=== PATIENT | male | born 1990 | race Caucasian/White ===

== ENCOUNTER → 2016-07-27 | Outpatient (CLI) | payer OTHER ==
--- NOTE | 2016-07-27 13:51 | XR ---
EXAMINATION TYPE: XR knee complete RT DATE OF EXAM: 07/27/2016 1:47 PM COMPARISON: NONE HISTORY: Pain FINDINGS: Joint spaces are preserved. Osseous structures are intact. No acute fracture seen. IMPRESSION: 1. No acute fracture or dislocation. Consider MRI follow-up.
== END | disposition home or self-care (01) ==
LOC: RADXRMAIN 13:34
PROVIDERS: ATTEND Physician Assistant
DX: M25.561 Pain in right knee (principal)

== ENCOUNTER 2019-08-30 13:13 | Emergency (ER) | payer BC, OTHER ==
[2019-08-30 13:19] VITALS: TEMP 98.1
[2019-08-30 14:01] VITALS: RESP 18
[2019-08-30 14:13] LABS: Basophils % (A) 1 %; Eosinophils # (A) 0.1 k/uL (0-0.7); Eosinophils % (A) 1 %; HCT 49.8 % (39.0-53.0); HGB 17.2 gm/dL (13.0-17.5); Lymphocytes % (A) 14 %; MCH 31.5 pg (25.0-35.0); MCHC 34.5 g/dL (31.0-37.0); MCV 91.2 fL (80.0-100.0); Mean Platelet Volume 7.5; Monocytes # (A) 0.5 k/uL (0-1.0); Monocytes % (A) 8 %; Neutrophils % (A) 74 %; Platelet Count 132 k/uL (150-450); RBC 5.46 m/uL (4.30-5.90); RDW 12.9 % (11.5-15.5); WBC 6.8 k/uL (3.8-10.6)
[2019-08-30 14:18] LABS: Appearance,Urine Clear (Clear); Bilirubin,Urine Negative (Negative); Blood,Urine Negative (Negative); Color,Urine Yellow; Glucose,Urine (UA) Negative (Negative); Ketones,Urine Negative (Negative); Leukocyte Esterase,Urine Negative (Negative); Nitrite,Urine Negative (Negative); Protein,Urine Trace (Negative); Specific Gravity,Urine 1.031 (1.001-1.035)
[2019-08-30 14:22] LABS: Chloride 102 mmol/L (98-107)
[2019-08-30 14:23] LABS: ALT 24 U/L (4-49); AST 34 U/L (17-59); African American GFR (CKD) >90 (>60 ml/min/1.73 sqM); Albumin 4.3 g/dL (3.5-5.0); Alkaline Phosphatase 66 U/L (38-126); Amylase 43 U/L (30-110); Anion Gap 7 mmol/L; Blood Urea Nitrogen 16 mg/dL (9-20); Carbon Dioxide 26 mmol/L (22-30); Glucose 92 mg/dL (74-99); Non-African American GFR(CKD) >90 (>60 ml/min/1.73 sqM); Sodium 135 mmol/L (137-145); Total Bilirubin 2.4 mg/dL (0.2-1.3)
[2019-08-30 14:29] LABS: Potassium 4.2 mmol/L (3.5-5.1)
--- NOTE | 2019-08-30 14:43 | XR ---
EXAMINATION TYPE: XR KUB DATE OF EXAM: 08/30/2019 COMPARISON: NONE HISTORY: Pain TECHNIQUE: One view abdominal series FINDINGS: The osseous structures are intact. The bowel gas pattern is nonspecific. Lung bases are clear. Ther e are air-fluid levels noted. Calcification along the lateral margin of the left acetabulum can be as sociated with an acetabular labral tear. Nonspherical morphology of the femoral head can be associate d with bilateral femoral acetabular impingement. IMPRESSION: 1. Nonspecific abdomen. Numerous air-fluid levels can be seen with an ileus, enteritis or partial ob struction correlate clinically.
--- NOTE | 2019-08-30 15:29 | CT ---
EXAMINATION TYPE: CT abdomen pelvis w con DATE OF EXAM: 08/30/2019 COMPARISON: Abdominal x-ray earlier today HISTORY: Upper Abdominal pain with nausea. CT DLP: 620.7 mGycm, Automated Exposure Control for Dose Reduction was Utilized. CONTRAST: CT scan of the abdomen and pelvis is performed without oral but with IV Contrast, patient injected wi th 100 mL of Isovue 300. FINDINGS: LUNG BASES: No significant abnormality is appreciated. LIVER/GB: Right hepatic dome shows 1.4 cm hyperdense round enhancing focus that becomes isodense on d elayed phase images seen best on axial image 15 series 201. Subcentimeter hypodense lesion left hepat ic lobe image 21 too small to further characterize presumed benign. PANCREAS: No significant abnormality is seen. SPLEEN: Mild splenomegaly 14.0 cm long axis coronal image 38. ADRENALS: No significant abnormality is seen. KIDNEYS: No significant abnormality is seen. BOWEL: Suboptimal evaluation of bowel without enteric contrast and patient having little intra-abdomi nal fat. Stomach is felt within normal limits. There is no suspicious small or large bowel dilatation . Some fluid extends into the low lying cecum in the right pelvis. Mild to moderate wall thickening o f some small bowel loops in the left abdomen is felt present. PROSTATE/SEMINAL VESICLES: No gross abnormality seen. LYMPH NODES: No greater than 1cm abdominal or pelvic lymph nodes are appreciated. OSSEOUS STRUCTURES: No significant abnormality is seen. OTHER: No significant additional abnormality is seen. IMPRESSION: 1. Overall nonobstructive bowel gas pattern CT. Perhaps mild underlying uncomplicated enterocolitis, correlate clinically. 2. There is 1.4 cm hyperdense right hepatic dome liver lesion, differential includes adenoma versus F NH. Nonemergent multiphase liver protocol contrast-enhanced MRI follow-up is advised. 3. Mild splenomegaly noted which may warrant further clinical workup.
[2019-08-30] MEDS ORDERED: MORPHINE SULFATE 4 MG/ML SYRINGE IVP STA (15:55)
--- NOTE | 2019-08-30 16:29 | ED ---
Abdominal Pain HPI - General Chief Complaint: Abdominal Pain Stated Complaint: abdominal pain-sent from dr Time Seen by Provider: 08/30/19 14:29 Source: patient Mode of arrival: ambulatory Limitations: no limitations - History of Present Illness Initial Comments: 29-year-old male presenting for upper abdominal painx 4-5 days. Patient states that she has had upper abdominal pain since Wednesday. He states he had vomiting at that time and thought he was coming down with an infection. Patient denies diarrhea. He states he has not had a significant bowel movement 3 days patient is passing gas. Patient states he went to an urgent care where he had a plain film there is concern for possible obstruction U sent to the emergency department for further evaluation. Patient denies any vomiting since Wednesday. She states that he has had some belching. Patient denies any chest pain shortness of breath patient denies radiation of pain to the back denies any chronic NSAID or alcohol abuse, no history of PUD. Lites melena denies hematochezia. Patient denies any hematemesis, or fevers. patient has no other complaints upon arrival patient appears well besides acute distress. Patient states recently the pain has been getting better - Related Data Home Medications Medication Instructions Recorded Confirmed No Known Home Medications 11/15/14 11/15/14 Allergies Allergy/AdvReac Type Severity Reaction Status Date / Time No Known Allergies Allergy Verified 08/30/19 13:19 Review of Systems ROS Statement: Those systems with pertinent positive or pertinent negative responses have been documented in the HPI. ROS Other: All systems not noted in ROS Statement are negative. Past Medical History Past Medical History: No Reported History History of Any Multi-Drug Resistant Organisms: None Reported Past Surgical History: No Surgical Hx Reported Past Psychological History: No Psychological Hx Reported Smoking Status: Former smoker Past Alcohol Use History: None Reported Past Drug Use History: Marijuana General Exam - General Exam Comments Initial Comments: General: The patient is awake and alert, in no distress, and does not appear acutely ill. Eye: +3 mm pupils are equal, round and reactive to light, extra-ocular mov ements are intact. No nystagmus. There is normal conjunctiva bilaterally. No signs of icterus. Cardiovascular: There is a regular rate and rhythm. No murmur, rub or gallop is appreciated. Respiratory: Lungs are clear to auscultation, respirations are non-labored, breath sounds are equal. No wheezes, stridor, rales, or rhonchi. Gastrointestinal: Soft, non-distended, mild epigastric pain to deep palpation remaining abdomen nontender and is without masses or organomegaly noted. There is no rebound or guarding present. Bowel sounds are unremarkable Musculoskeletal: Normal ROM, no tenderness. Strength 5/5. Sensation intact. Pulses equal bilaterally 2+. Neurological: A&O x 3. CN II-XII intact, There are no obvious motor or sensory deficits. Coordination appears grossly intact. Speech is normal. Skin: Skin is warm and dry and no rashes or lesions are noted. Psychiatric: Cooperative, appropriate mood & affect, normal judgment. Limitations: no limitations Course Vital Signs 08/30/19 08/30/19 08/30/19 13:15 14:00 16:04 Temperature 98.1 F Pulse Rate 74 80 75 Respiratory 16 18 18 Rate Blood Pressure 123/76 131/74 120/81 O2 Sat by Pulse 98 95 97 Oximetry 08/30/19 16:34 Temperature 98.1 F Pulse Rate 85 Respiratory 18 Rate Blood Pressure 121/74 O2 Sat by Pulse 97 Oximetry Medical Decision Making - Medical Decision Making 29-year-old male presenting for abdominal pain history of vomiting on Wednesday. Epigastric pain since. KUB concerning for enteritis however could not rule out obstruction CT revealed no obstructive pop process no appendicitis. Findings again consistent with gastroenteritis. At this time given patient VS and laboratory studies are stable his pain appears mild he is in no acute distress he states he is passing gas and he states he has not had much of a bowel movement also has not been eating for the past 3 days that he is stable for discharge with outpatient primary care follow-up if patient's symptoms are worsening he is to return immediately to the emergency department. I discussed the case attending private Dr. Harper was agreeable and recommended discharge at this time. - Lab Data Result diagrams: 08/30/19 13:58 08/30/19 13:58 Lab Results 08/30/19 08/30/19 08/30/19 Range/Units 13:42 13:58 13:58 WBC 6.8 (3.8-10.6) k/uL RBC 5.46 (4.30-5.90) m/uL Hgb 17.2 (13.0-17.5) gm/dL Hct 49.8 (39.0-53.0) % MCV 91.2 (80.0-100.0) fL MCH 31.5 (25.0-35.0) pg MCHC 34.5 (31.0-37.0) g/dL RDW 12.9 (11.5-15.5) % Plt Count 132 L (150-450) k/uL Neutrophils % 74 % Lymphocytes % 14 % Monocytes % 8 % Eosinophils % 1 % Basophils % 1 % Neutrophils # 5.0 (1.3-7.7) k/uL Lymphocytes # 1.0 (1.0-4.8) k/uL Monocytes # 0.5 (0-1.0) k/uL Eosinophils # 0.1 (0-0.7) k/uL Basophils # 0.0 (0-0.2) k/uL Sodium 135 L (137-145) mmol/L Potassium 4.2 (3.5-5.1) mmol/L Chloride 102 (98-107) mmol/L Carbon Dioxide 26 (22-30) mmol/L Anion Gap 7 mmol/L BUN 16 (9-20) mg/dL Creatinine 0.74 (0.66-1.25) mg/dL Est GFR (CKD-EPI)AfAm >90 (>60 ml/min/1.73 sqM) Est GFR (CKD-EPI)NonAf >90 (>60 ml/min/1.73 sqM) Glucose 92 (74-99) mg/dL Calcium 9.0 (8.4-10.2) mg/dL Total Bilirubin 2.4 H (0.2-1.3) mg/dL AST 34 (17-59) U/L ALT 24 (4-49) U/L Alkaline Phosphatase 66 (38-126) U/L Troponin I (0.000-0.034) ng/mL Total Protein 7.0 (6.3-8.2) g/dL Albumin 4.3 (3.5-5.0) g/dL Amylase 43 (30-110) U/L Lipase 83 (23-300) U/L Urine Color Yellow Urine Appearance Clear (Clear) Urine pH 6.0 (5.0-8.0) Ur Specific [place] 1.031 (1.001-1.035) Urine Protein Trace H (Negative) Urine Glucose (UA) Negative (Negative) Urine Ketones Negative (Negative) Urine Blood Negative (Negative) Urine Nitrite Negative (Negative) Urine Bilirubin Negative (Negative) Urine Urobilinogen 2.0 (<2.0) mg/dL Ur Leukocyte Esterase Negative (Negative) 08/30/19 Range/Units 13:58 WBC (3.8-10.6) k/uL RBC (4.30-5.90) m/uL Hgb (13.0-17.5) gm/dL Hct (39.0-53.0) % MCV (80.0-100.0) fL MCH (25.0-35.0) pg MCHC (31.0-37.0) g/dL RDW (11.5-15.5) % Plt Count (150-450) k/uL Neutrophils % % Lymphocytes % % Monocytes % % Eosinophils % % Basophils % % Neutrophils # (1.3-7.7) k/uL Lymphocytes # (1.0-4.8) k/uL Monocytes # (0-1.0) k/uL Eosinophils # (0-0.7) k/uL Basophils # (0-0.2) k/uL Sodium (137-145) mmol/L Potassium (3.5-5.1) mmol/L Chloride (98-107) mmol/L Carbon Dioxide (22-30) mmol/L Anion Gap mmol/L BUN (9-20) mg/dL Creatinine (0.66-1.25) mg/dL Est GFR (CKD-EPI)AfAm (>60 ml/min/1.73 sqM) Est GFR (CKD-EPI)NonAf (>60 ml/min/1.73 sqM) Glucose (74-99) mg/dL Calcium (8.4-10.2) mg/dL Total Bilirubin (0.2-1.3) mg/dL AST (17-59) U/L ALT (4-49) U/L Alkaline Phosphatase (38-126) U/L Troponin I <0.012 (0.000-0.034) ng/mL Total Protein (6.3-8.2) g/dL Albumin (3.5-5.0) g/dL Amylase (30-110) U/L Lipase (23-300) U/L Urine Color Urine Appearance (Clear) Urine pH (5.0-8.0) Ur Specific [place] (1.001-1.035) Urine Protein (Negative) Urine Glucose (UA) (Negative) Urine Ketones (Negative) Urine Blood (Negative) Urine Nitrite (Negative) Urine Bilirubin (Negative) Urine Urobilinogen (<2.0) mg/dL Ur Leukocyte Esterase (Negative) - EKG Data EKG Comments: Ventricular rate 69 bpm, MD interval 122 ms, QRS patient 88 ms, QT/QTC 380 7 ms. This is normal sinus no ST elevation or depression noted. Disposition Clinical Impression: Abdominal pain Disposition: HOME SELF-CARE Condition: Good Instructions (If sedation given, give patient instructions): Abdominal Pain (ED) Additional Instructions: Please use medication as discussed. Please follow-up with family doctor in the next 2 days. Please return to emergency room if the symptoms increase or worsen or for any other concerns. Is patient prescribed a controlled substance at d/c from ED?: No Referrals: None,Stated [Primary Care Provider] - 1-2 days Huan Reyes MD [STAFF PHYSICIAN] - 1-2 days Time of Disposition: 16:28
[2019-08-30 16:35] VITALS: BP 121/74; PULSE 85
== END 2019-08-30 16:39 | disposition home or self-care (01) ==
LOC: EC 13:13
DX: R10.13 Epigastric pain (principal); K92.1 Melena; Z87.891 Personal history of nicotine dependence
CPT/HCPCS: 36415; 93005; 80053; 82150; 83690; 84484; 85025; 81003; 74018; 74177; 99284; 96374; J2270; Q9967

== ENCOUNTER 2024-07-06 09:57 | Emergency (ER) | payer BC, OTHER ==
[2024-07-06 10:05] VITALS: RESP 18
--- NOTE | 2024-07-06 10:19 | ED ---
Male Urogenital HPI - General Chief complaint: Urogenital Stated complaint: Abd pain Time Seen by Provider: 07/06/24 10:08 Source: patient, RN notes reviewed Mode of arrival: ambulatory Limitations: no limitations - History of Present Illness Initial comments: This is a 34-year-old male with no significant medical history presenting to the emergency department with referral from urgent care for complaint of testicular pain is been worsening over the past week. Patient states that he has a history of prostatitis and epididymitis and states that symptoms feel similar. He is endorsing suprapubic tenderness and testicular pain. Endorses mild swelling with no erythema or warmth. Denies dysuria, hematuria, dysuria frequency or urgency. Fevers, chills, nausea, vomiting. Denies history of STI/STD denies current concern. States that he has mild pain after ejaculation. Denies previous surgical abdominal history. Denies recent antibiotic use. - Related Data Home Medications Medication Instructions Recorded Confirmed No Known Home Medications 11/15/14 11/15/14 Allergies Allergy/AdvReac Type Severity Reaction Status Date / Time No Known Allergies Allergy Verified 07/06/24 10:02 Review of Systems ROS Statement: Those systems with pertinent positive or pertinent negative responses have been documented in the HPI. ROS Other: All systems not noted in ROS Statement are negative. Past Medical History Past Medical History: No Reported History Additional Past Medical History / Comment(s): epididimitis. prostatitis History of Any Multi-Drug Resistant Organisms: None Reported Past Surgical History: Ear Surgery Past Psychological History: No Psychological Hx Reported Smoking Status: Former smoker Past Alcohol Use History: None Reported Past Drug Use History: Marijuana General Exam Limitations: no limitations ENT exam: Present: normal exam, mucous membranes moist Neck exam: Present: normal inspection. Absent: tenderness, meningismus, lymphadenopathy Respiratory exam: Present: normal lung sounds bilaterally. Absent: respiratory distress, wheezes, rales, rhonchi, stridor Cardiovascular Exam: Present: regular rate, normal rhythm, normal heart sounds. Absent: systolic murmur, diastolic murmur, rubs, gallop, clicks GI/Abdominal exam: Present: soft, normal bowel sounds. Absent: distended, tenderness, guarding, rebound, rigid exam: Present: normal inspection. Absent: urethral discharge, scrotal swelling, vertical testicular lie Extremities exam: Present: normal inspection, full ROM, normal capillary refill. Absent: tenderness, pedal edema, joint swelling, calf tenderness Back exam: Present: normal inspection Skin exam: Present: warm, dry, intact, normal color. Absent: rash Course Vital Signs 07/06/24 07/06/24 10:02 11:57 Temperature 98.3 F 98.1 F Pulse Rate 56 L 52 L Respiratory 18 18 Rate Blood Pressure 150/81 114/66 O2 Sat by Pulse 100 97 Oximetry Medical Decision Making - Medical Decision Making Was pt. sent in by a medical professional or institution (, PA, UNDERGROUND DISTRIBUTION ENGINEER, urgent care, hospital, or halfway...) When possible be specific @ -No Did you speak to anyone other than the patient for history (EMS, parent, family, police, friend...)? What history was obtained from this source @ -No Did you review nursing and triage notes (agree or disagree)? Why? @ -I reviewed and agree with nursing and triage notes Were old charts reviewed (outside hosp., previous admission, EMS record, old EKG, old radiological studies, urgent care reports/EKG's, halfway records)? Report findings @ -No old charts were reviewed Differential Diagnosis (chest pain, altered mental status, abdominal pain women, abdominal pain men, vaginal bleeding, weakness, fever, dyspnea, syncope, headache, dizziness, GI bleed, back pain, seizure, CVA, palpatations, mental health, musculoskeletal)? @ -Differential Abdominal Pain Men: Appendicitis, cholecystitis, diverticulosis, ischemic bowel, pancreatitis, hepatitis, UTI, gastroenteritis, AAA, incarcerated hernia, bowel obstruction, constipation, inflammatory bowel, hepatitis, peptic ulcer disease, splenic infarction, perforated viscus, testicular torsion, this is not meant to be an all-inclusive list EKG interpreted by me (3pts min.). @ -None X-rays interpreted by me (1pt min.). @ -None done CT interpreted by me (1pt min.). @ -None done U/S interpreted by me (1pt. min.). @ -Scrotal ultrasound completed with no evidence for testicular torsion or epididymitis or orchitis with no hydroceles or other abnormality present What testing was considered but not performed or refused? (CT, X-rays, U/S, labs)? Why? @ -STD testing was considered but deferred at this time. Patient denies chance of STD and would like to defer testing at this time. What meds were considered but not given or refused? Why? @ -None Did you discuss the management of the patient with other professionals (professionals i.e. , PA, UNDERGROUND DISTRIBUTION ENGINEER, lab, RT, psych nurse, older adult social work specialist, political director, teacher, juvenile probation officer, case preparer and liner)? Give summary @ -No Was smoking cessation discussed for >3mins.? @ -No Was critical care preformed (if so, how long)? @ -No Were there social determinants of health that impacted care today? How? (Homelessness, low income, unemployed, alcoholism, drug addiction, transportation, low edu. Level, literacy, decrease access to med. care, correction, rehab)? @ -No Was there de-escalation of care discussed even if they declined (Discuss DNR or withdrawal of care, Hospice)? DNR status @ -No What co-morbidities impacted this encounter? (DM, HTN, Smoking, COPD, CAD, Cancer, CVA, ARF, Chemo, Hep., AIDS, mental health diagnosis, sleep apnea, morbid obesity)? @ -None Was patient admitted / discharged? Hospital course, mention meds given and route, prescriptions, significant lab abnormalities, going to OR and other pe rtinent info. @ -Discharge. 34-year-old male presenting with testicular pain. Vitals stable. Physical examination is unremarkable. Urinalysis unremarkable. Ultrasound completed with no evidence for testicular torsion, epididymitis or orchitis. Patient's work was been benign. He is provided with outpatient follow-up with urology as he has had persistent symptoms of testicular pain. Discussed with Dr. Guzman Undiagnosed new problem with uncertain prognosis? @ -No Drug Therapy requiring intensive monitoring for toxicity (Heparin, Nitro, Insulin, Cardizem)? @ -No Were any procedures done? @ -No Diagnosis/symptom? @ -testicular pain Acute, or Chronic, or Acute on Chronic? @ -acute Uncomplicated (without systemic symptoms) or Complicated (systemic symptoms)? @ -uncomplicated Side effects of treatment? @ -No Exacerbation, Progression, or Severe Exacerbation? @ -No Poses a threat to life or bodily function? How? (Chest pain, [place], [place], pneumonia, PE, COPD, DKA, ARF, appy, cholecystitis, CVA, Diverticulitis, Homicidal, Suicidal, threat to staff... and all critical care pts) @ -No - Lab Data Lab Results 07/06/24 Range/Units 10:23 Urine Color Yellow Urine Appearance Clear (Clear) Urine pH 5.5 (5.0-8.0) Ur Specific [place] 1.029 (1.001-1.035) Urine Protein Negative (Negative) Urine Glucose (UA) Negative (Negative) Urine Ketones Negative (Negative) Urine Blood Negative (Negative) Urine Nitrite Negative (Negative) Urine Bilirubin Negative (Negative) Urine Urobilinogen <2.0 (<2.0) mg/dL Ur Leukocyte Esterase Negative (Negative) Disposition Clinical Impression: Testicular pain Disposition: HOME SELF-CARE Condition: Good Instructions (If sedation given, give patient instructions): Testicle Pain (ED), Scrotal Pain (ED) Additional Instructions: Please return to the Emergency Department if symptoms worsen or any other concerns. Is patient prescribed a controlled substance at d/c from ED?: No Referrals: [facility] [NON-STAFF] - 1-2 days [facility] [NON-STAFF] - 1-2 days None,Stated [Primary Care Provider] - 1-2 days José Antonio Nichols MD [STAFF PHYSICIAN] - 1-2 days Forms: Area PCPs Time of Disposition: 11:48
[2024-07-06 10:36] LABS: Appearance,Urine Clear (Clear); Bilirubin,Urine Negative (Negative); Blood,Urine Negative (Negative); Color,Urine Yellow; Glucose,Urine (UA) Negative (Negative); Ketones,Urine Negative (Negative); Leukocyte Esterase,Urine Negative (Negative); Nitrite,Urine Negative (Negative); PH, Urine 5.5 (5.0-8.0); Protein,Urine Negative (Negative); Specific Gravity,Urine 1.029 (1.001-1.035); Urobilinogen,Urine <2.0 mg/dL (<2.0)
--- NOTE | 2024-07-06 11:35 | US ---
EXAMINATION TYPE: US scrotum with doppler. DATE OF EXAM: 07/06/2024 COMPARISON: NONE CLINICAL INDICATION: Male, 34 years old with history of scrotal pain, swelling, history epididymitis; Pt states left testicle pain on/off for "a long time" TECHNIQUE: Grayscale, color Doppler and spectral Doppler imaging of the scrotum. FINDINGS: EXAM MEASUREMENTS: TESTICLES: Right Testicle: 5.0 x 2.9 x 3.1 cm Left Testicle: 4.7 x 3.0 x 3.1 cm Both testicles show a normal homogeneous appearance without hyperemia. EPIDIDYMIS HEAD: Right Epididymis: 0.9 cm Left Epididymis: 1.0 cm Doppler performed to assess for testicular vascularity; good bilateral color flow and spectral wavefo tammy are seen. There is no evidence of testicular torsion. Presence of hydroceles: No Presence of varicoceles: No Non Acoustic Operator notes: No abnormality visualized at this time to account for pt's left testicle pain IMPRESSION: No evidence for testicular torsion or epididymoorchitis. No hydroceles other specific abnormality see n. [facility], Workstation: [email or web address] RepublicJUAN JOSE, 07/06/2024 11:32 AM
[2024-07-06 11:58] VITALS: BP 114/66; PULSE 52; TEMP 98.1
== END 2024-07-06 12:16 | disposition home or self-care (01) ==
LOC: EC 09:57
DX: N50.812 Left testicular pain (principal); Z87.891 Personal history of nicotine dependence
CPT/HCPCS: 76870; 81003; 93975; 99284

== ENCOUNTER 2024-12-16 12:33 | Emergency (ER) | payer BC, OTHER ==
--- NOTE | 2024-12-16 13:06 | ED ---
General Adult HPI - General Chief complaint: Syncope Stated complaint: Head injury Time Seen by Provider: 12/16/24 12:43 Source: patient, RN notes reviewed, old records reviewed Mode of arrival: ambulatory Limitations: no limitations - History of Present Illness Initial comments: 34-year-old male presenting for evaluation after syncopal episode and fall with head neck and upper back injury. This occurred several days prior. Patient states he began feeling lightheaded after looking up some medical information which was unrelated to today's evaluation. He passed out for several minutes and injured his upper back and neck as well as his head. His work requested evaluation prior to returning to work. - Related Data Home Medications Medication Instructions Recorded Confirmed No Known Home Medications 11/15/14 11/15/14 Allergies Allergy/AdvReac Type Severity Reaction Status Date / Time No Known Allergies Allergy Verified 12/16/24 12:42 Review of Systems ROS Statement: Those systems with pertinent positive or pertinent negative responses have been documented in the HPI. ROS Other: All systems not noted in ROS Statement are negative. Past Medical History Past Medical History: No Reported History Additional Past Medical History / Comment(s): epididimitis. prostatitis History of Any Multi-Drug Resistant Organisms: None Reported Past Surgical History: Ear Surgery Past Psychological History: No Psychological Hx Reported Smoking Status: Former smoker Past Alcohol Use History: None Reported Past Drug Use History: Marijuana General Exam Limitations: no limitations General appearance: alert, in no apparent distress Head exam: Present: atraumatic, normocephalic Eye exam: Present: normal appearance, PERRL ENT exam: Present: normal exam Neck exam: Present: tenderness, full ROM Respiratory exam: Present: normal lung sounds bilaterally. Absent: respiratory distress, wheezes Cardiovascular Exam: Present: regular rate, normal rhythm GI/Abdominal exam: Present: soft. Absent: distended, tenderness Extremities exam: Present: normal inspection, normal capillary refill Back exam: Present: vertebral tenderness (Thoracic, superficial abrasion) Psychiatric exam: Present: normal affect, normal mood Skin exam: Present: warm, dry Course Vital Signs 12/16/24 12:38 Temperature 98.0 F Pulse Rate 62 Respiratory 16 Rate Blood Pressure 160/67 O2 Sat by Pulse 100 Oximetry Medical Decision Making - Medical Decision Making Was pt. sent in by a medical professional or institution (, PA, ANIMAL SCIENTIST, urgent care, hospital, or senior living...) When possible be specific @ -No Did you speak to anyone other than the patient for history (EMS, parent, family, police, friend...)? What history was obtained from this source @ -No Did you review nursing and triage notes (agree or disagree)? Why? @ -I reviewed and agree with nursing and triage notes Were old charts reviewed (outside hosp., previous admission, EMS record, old EKG, old radiological studies, urgent care reports/EKG's, senior living records)? Report findings @ -No old charts were reviewed Differential Diagnosis (chest pain, altered mental status, abdominal pain women, abdominal pain men, vaginal bleeding, weakness, fever, dyspnea, syncope, headache, dizziness, GI bleed, back pain, seizure, CVA, palpatations, mental health, musculoskeletal)? @ -Not applicable EKG interpreted by me (3pts min.). @Sinus bradycardia, early repolarization throughout the inferior and precordial leads no ST segment depression rate of 47, AR interval 143, QRS duration 94, QTc 372 X-rays interpreted by me (1pt min.). @ -Thoracic x-ray negative for displaced fracture no acute findings CT interpreted by me (1pt min.). @ -CT brain and cervical spine negative for traumatic injury U/S interpreted by me (1pt. min.). @ -None done What testing was considered but not performed or refused? (CT, X-rays, U/S, labs)? Why? @ -None What meds were considered but not given or refused? Why? @ -None Did you discuss the management of the patient with other professionals (professionals i.e. , PA, ANIMAL SCIENTIST, lab, RT, psych nurse, social media marketing manager, enamel buffer, teacher, catapult and arresting gear officer, director of casework)? Give summary @ -No Was smoking cessation discussed for >3mins.? @ -No Was critical care preformed (if so, how long)? @ -No Were there social determinants of health that impacted care today? How? (Homelessness, low income, unemployed, alcoholism, drug addiction, transportation, low edu. Level, literacy, decrease access to med. care, halfway, rehab)? @ -No Was there de-escalation of care discussed even if they declined (Discuss DNR or withdrawal of care, Hospice)? DNR status @ -No What co-morbidities impacted this encounter? (DM, HTN, Smoking, COPD, CAD, Cancer, CVA, ARF, Chemo, Hep., AIDS, mental health diagnosis, sleep apnea, morbid obesity)? @ -None Was patient admitted / discharged? Hospital course, mention meds given and route, prescriptions, significant lab abnormalities, going to OR and other pertinent info. @34-year-old male with syncopal episode vasovagal in nature with injury to the upper back and neck. CT of the brain and C-spine is negative for traumatic injury and x-ray of the thoracic spine negative for fracture or subluxation. Patient states the episode occurred after he was looking at a medical related image. Patient is asymptomatic at the time my evaluation with the exception of pain complaints from the fall. Undiagnosed new problem with uncertain prognosis? @ -No Drug Therapy requiring intensive monitoring for toxicity (Heparin, Nitro, Insulin, Cardizem)? @ -No Were any procedures done? @ -No Diagnosis/symptom? @ -Vasovagal syncope Acute, or Chronic, or Acute on Chronic? @ -Acute Uncomplicated (without systemic symptoms) or Complicated (systemic symptoms)? @ -Default Side effects of treatment? @ -No Exacerbation, Progression, or Severe Exacerbation? @ -No Poses a threat to life or bodily function? How? (Chest pain, [place], [place], pneumonia, PE, COPD, DKA, ARF, appy, cholecystitis, CVA, Diverticulitis, Homicidal, Suicidal, threat to staff... and all critical care pts) @ -No Disposition Clinical Impression: Vasovagal syncope Disposition: HOME SELF-CARE Condition: Fair Instructions (If sedation given, give patient instructions): Syncope (ED) Is patient prescribed a controlled substance at d/c from ED?: No Referrals: None,Stated [Primary Care Provider] - 1-2 days Time of Disposition: 14:41
--- NOTE | 2024-12-16 14:25 | XR ---
EXAMINATION TYPE: XR thoracic spine complete DATE OF EXAM: 12/16/2024 2:21 PM COMPARISON: None CLINICAL INDICATION: Male, 34 years old with history of fall/pain; PHH, pain TECHNIQUE: XR thoracic spine complete views of the spine in Frontal and lateral projections. FINDINGS: No evidence of acute fracture. There is no evidence of disk space narrowing or loss of vertebral bod y height. There is normal alignment of the thoracic vertebral bodies. IMPRESSION: No radiographic evidence of acute osseous pathology. [facility], , 12/16/2024 2:23 PM
--- NOTE | 2024-12-16 14:25 | CT ---
EXAMINATION TYPE: CT brain cspine wo con DATE OF EXAM: 12/16/2024 2:15 PM COMPARISON: None. CLINICAL INDICATION: Male, 34 years old with history of syncope/fall; Syncopal episode, fall hit back of head. Unknown LOC. No thinners. Left side neck pain and arm numbness. TECHNIQUE: Brain: Multiple axial CT images of the brain were obtained without IV contrast. Cspine: Axial CT images from the skull base to the inferior aspect of T2 we obtained without intraven ous contrast. Coronal and sagittal reformatted images were also reviewed. . CT DLP: 1292 mGycm, Automated exposure control for dose reduction was used. FINDINGS: Brain: Extra-axial spaces: No abnormal extra-axial fluid collections. Ventricular system: Within normal limits Cerebral parenchyma: No acute intraparenchymal hemorrhage or mass effect. The dickson-white junction is well differentiated. Cerebellum: Unremarkable. Mass effect: No evidence of midline shift. Intracranial vasculature: unremarkable Soft tissues: Normal. Calvarium/osseous structures: No depressed skull fracture. Paranasal sinuses and mastoid air cells: Clear. Visualized orbits: Orbital contents are intact. Cervical spine: Fracture: No definite acute fracture. Osseous defect along the anterior margin of the right C4 neural foramen (image 47/109) is felt to most likely reflect congenital etiology given lack of secondary fi ndings to suggest acute fracture. Cervical spine vertebral body heights are maintained. Osseous structures: Intervertebral disc spaces appear grossly maintained. Vertebral alignment: Within normal limits. Spinal canal/Neural Foramina: No evidence of a graded significant spinal canal narrowing. No evidence for significant high-grade neural foraminal stenosis. Neck soft tissues: Prevertebral soft tissues are within normal limits. Other: The airway is patent. The lung apices are clear. IMPRESSION: 1. No acute intracranial process. 2. No acute fracture or traumatic subluxation of the cervical spine. [facility], , 12/16/2024 2:22 PM
[2024-12-16 16:31] VITALS: BP 119/71; PULSE 48; RESP 18; TEMP 97.8
== END 2024-12-16 16:33 | disposition home or self-care (01) ==
LOC: EC 12:33
DX: R55 Syncope and collapse (principal); Z87.891 Personal history of nicotine dependence
CPT/HCPCS: 70450; 72072; 72125; 93005; 99284